=== PATIENT | male | born 1970 | race Caucasian/White ===

== ENCOUNTER 2016-09-26 04:30 | Emergency (ER) | payer OTHER ==
[~2016-09-26] VITALS: Ht 172.7 cm; Wt 77.1 kg
[~2016-09-26 04:30] MED LIST: BENZONATATE100 MG; CEPHALEXIN500 MG; DHEA PO; DILAUDID2 MG PO; FLOMAX(MONOGRA0.4 MG PO; MOTRIN 800MG T800 MG PO; MULTIVITAMIN1 TAB PO; PERCOCET 325 MG1 TA2 PO; VITAB121000 PO; VITAMIN D32000 I1 PO; ZOFRAN4 M1 SL
--- NOTE | 2016-09-26 05:05 | ED HAND/WRIST INJURY COMPLAINT ---
History of Present Illness General Chief Complaint: Fall Stated Complaint: "? LT THUNB INJURY,RT KNEE PAIN S/P FALL" -LOC Source: patient, old records Exam Limitations: no limitations Vital Signs & Intake/Output Vital Signs & Intake/Output Vital Signs Date Time Temp Pulse Resp B/P Pulse O2 O2 Flow FiO2 Ox Delivery Rate 09/26 0459 96.3 83 20 143/76 94 Room Air Allergies Coded Allergies: No Known Allergies (10/28/15) Reconcile Medications Ascorbic Acid/Calcium/Dehydr (Dhea) 1 TAB TAB 1 TAB PO DAILY SUPPLEMENT ( Reported) Benzonatate (Unknown Strength) SGL (Unknown Dose) UNKNOWN (Reported) Cephalexin (Unknown Strength) CAP (Unknown Dose) UNKNOWN (Reported) CHOLECALCIFEROL (VITAMIN D3) (Vitamin D-3) 2,000 IU SGL 1 SGL PO DAILY SUPPLEMENT (Reported) Cyanocobalamin (Vitamin B-12) (Unknown Strength) TAB (Unknown Dose) PO DAILY SUPPLEMENT (Reported) HYDROMORPHONE HCL (Dilaudid) 2 MG TAB 1 TAB PO Q6 PRN Pain 7-10 please take 1 tab every 6 hours for pain Please call PCP if pain persists after second pill Multivitamin (Multiple Vitamins) 1 TAB TAB 1 TAB PO DAILY SUPPLEMENT ( Reported) Ondansetron (Zofran Odt) 4 MG ODT 1 ODT SL Q6P PRN NAUSEA Tamsulosin Hydrochloride (Flomax) 0.4 MG CAP 1 TAB PO DAILY kidney stone Yibuprofen (Motrin 800MG Tab) 800 MG TAB 1 TAB PO Q6P PRN pain Triage Note: PT TO TRIAGE S/P FALLING THIS MORNING. C/O R KNEE PAIN AND L THUMB PAIN/LAC. DENIES HEAD STRIKE, DENIES BLOOD THINNERS. Triage Nurses Notes Reviewed? yes HPI: Patient was asleep in bed when he hurt his mother fall. Patient jumped up from bed and ran over to help her up. When he got there he noticed that there was blood on the floor and then his left thumb began to throb and his right knee began to hurt. Patient is unsure what he hit either of them on. Patient does not think he fell but he is unsure. The pain in his left thumb is constant and is throbbing in nature. There is no radiation. There are no aggravating or mitigating factors. The pain is 8 out of 10. The pain in his right knee is aching in nature and there is no radiation. There are no aggravating or mitigating factors. The pain is constant. He rates the pain as 4 out of 10. Past History Travel History Traveled to [place] past 21 day No Medical History Any Pertinent Medical History? 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 No Review of Systems Review of Systems Constitutional: Reports: no symptoms. Respiratory: Reports: no symptoms. Cardiovascular: Reports: no symptoms. GI: Reports: no symptoms. Musculoskeletal: Reports: see HPI. Neurological/Psychological: Reports: no symptoms. Immunologic/Allergic: Reports: no symptoms. Physical Exam Physical Exam General Appearance: well developed/nourished, alert, awake, anxious, moderate distress Head: atraumatic, normal appearance Eyes: Bilateral: PERRL, EOMI. Ears, Nose, Throat: normal pharynx, normal ENT inspection, hearing grossly normal Neck: normal inspection, supple, full range of motion Cardiovascular/Respiratory: normal breath sounds, normal peripheral pulses, regular rate/rhythm, no respiratory distress Hand Left: ECCHYMOSIS TO THE TIP OF LEFT THUMB. sENSATION IS INTACT Hand Right: normal inspection, normal range of motion Neurologic/Tendon: normal sensation, normal motor functions, normal tendon functions Progress Differential Diagnosis: contusion, fracture, sprain Plan of Care: Orders Procedure Date/time Status XRY-FINGERS, LEFT 09/26 0504 Active Diagnostic Imaging: Viewed by Me: Radiology Read. Discussed w/RAD: Radiology Read. Radiology Impression: no acute abnormality, no fracture, no dislocation, no foreign body seen Departure Departure Disposition: HOME OR SELF CARE Condition: Stable Clinical Impression Primary Impression: Contusion of left thumb Referrals: JACOB QUESADA MD (PCP/Family) Additional Instructions: R SPLINT FOR COMFORT RETURN FOR SORENING SYMPTOMS OR FOR ANY CONCERNS Departure Forms: Customer Survey General Discharge Information Prescriptions: Current Visit Scripts Oxycodone HCl/Acetaminophen (Percocet 5-325 MG Tablet) 1-2 TAB PO Q6P PRN PAIN #20 TAB Procedures Splinting Location: LEFT THUMB Manual Alignment Performed: No Pre-Made Type: metal Splint: THUMB/FINGER Splint Applied By: splint applied by me Pre-Proc Neuro Vasc Exam: normal Post-Proc Neuro Vasc Exam: normal
[2016-09-26] MEDS ORDERED: PERCOCET 5-3251 EACH PO (06:18)
--- NOTE | 2016-09-26 06:19 | RADIOLOGY REPORT ---
EXAMINATION: XR KNEE, RIGHT CLINICAL INFORMATION: Pain COMPARISON: None TECHNIQUE: Four views of the right knee. FINDINGS: Alignment is anatomic. Joint spaces are maintained. No acute fracture is seen. No significant effusion. IMPRESSION: No acute findings.
--- NOTE | 2016-09-26 06:21 | RADIOLOGY REPORT ---
EXAMINATION: XR FINGER, LEFT CLINICAL INFORMATION: Pain and bleeding COMPARISON: None TECHNIQUE: Three views of the left thumb. FINDINGS: Osseous alignment is anatomic. No acute fracture is seen. No significant soft tissue abnormality is identified. IMPRESSION: No acute findings identified.
[2016-09-26 06:40] VITALS: BP 132/72
== END 2016-09-26 06:46 ==
LOC: ERH 04:30
DX: S60.012A Contusion of left thumb without damage to nail, initial encounter (principal); M25.561 Pain in right knee; X58.XXXA Exposure to other specified factors, initial encounter
CPT/HCPCS: 73140-LT; 73562-RT; 90714

== ENCOUNTER 2016-09-26 09:43 | Emergency (ER) | payer OTHER ==
[~2016-09-26] VITALS: Ht 175.3 cm; Wt 87.1 kg
[~2016-09-26 09:43] MED LIST changes: +PERCOCET 5-3251 EACH PO
--- NOTE | 2016-09-26 09:45 | ED SKIN/ALLERGY COMPLAINT ---
History of Present Illness General Chief Complaint: Suture Removal/Wound Recheck Stated Complaint: WOUND CHECK Source: patient Exam Limitations: no limitations Vital Signs & Intake/Output Vital Signs & Intake/Output Vital Signs Date Time Temp Pulse Resp B/P Pulse O2 O2 Flow FiO2 Ox Delivery Rate 09/26 1152 96.9 85 18 127/77 98 Room Air 09/26 0948 98.0 76 20 127/81 98 Room Air Room Air Allergies Coded Allergies: No Known Allergies (09/26/16) Reconcile Medications Ascorbic Acid/Calcium/Dehydr (Dhea) 1 TAB TAB 1 TAB PO DAILY SUPPLEMENT ( Reported) Benzonatate (Unknown Strength) SGL (Unknown Dose) UNKNOWN (Reported) Cephalexin (Unknown Strength) CAP (Unknown Dose) UNKNOWN (Reported) CHOLECALCIFEROL (VITAMIN D3) (Vitamin D-3) 2,000 IU SGL 1 SGL PO DAILY SUPPLEMENT (Reported) Cyanocobalamin (Vitamin B-12) (Unknown Strength) TAB (Unknown Dose) PO DAILY SUPPLEMENT (Reported) HYDROMORPHONE HCL (Dilaudid) 2 MG TAB 1 TAB PO Q6 PRN Pain 7-10 please take 1 tab every 6 hours for pain Please call PCP if pain persists after second pill Multivitamin (Multiple Vitamins) 1 TAB TAB 1 TAB PO DAILY SUPPLEMENT ( Reported) Ondansetron (Zofran Odt) 4 MG ODT 1 ODT SL Q6P PRN NAUSEA Oxycodone HCl/Acetaminophen (Percocet 5-325 MG Tablet) 5 MG-325 MG TABLET 1-2 TAB PO Q6P PRN PAIN Tamsulosin Hydrochloride (Flomax) 0.4 MG CAP 1 TAB PO DAILY kidney stone Yibuprofen (Motrin 800MG Tab) 800 MG TAB 1 TAB PO Q6P PRN pain Triage Nurses Notes Reviewed? yes Onset: Abrupt Duration: getting worse Severity: severe Severity Numbers: 10 Location: extremities HPI: Patient is a 45-year-old male who presents emergency room with requests of wound evaluation in which he was seen earlier in the morning today [place] emergency room where he was evaluated for a left thumb contusion and a right knee contusion in which x-rays were unremarkable for osseous injury. Splinting was applied however patient returns to emergency room stay in that the wound site to the left thumb continuously bleeds. Patient has had no relief of pain with Percocet. (RADHA COLES,DMITRY) Past History Travel History Traveled to [place] past 21 day No Medical History Any Pertinent Medical History? 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 No (DMITRY RODRIGUEZ) Review of Systems Review of Systems Constitutional: Reports: no symptoms. EENTM: Reports: no symptoms. Respiratory: Reports: no symptoms. Cardiovascular: Reports: no symptoms. GI: Reports: no symptoms. Genitourinary: Reports: no symptoms. Musculoskeletal: Reports: see HPI, joint pain. Skin: Reports: see HPI. Neurological/Psychological: Reports: no symptoms. Hematologic/Endocrine: Reports: see HPI, bleeding. Immunologic/Allergic: Reports: no symptoms. All Other Systems: Reviewed and Negative (DMITRY RODRIGUEZ) Physical Exam Physical Exam General Appearance: no apparent distress, alert, comfortable Head: atraumatic Eyes: Bilateral: normal appearance. Ears, Nose, Throat: hearing grossly normal Neck: normal inspection Respiratory: normal breath sounds Peripheral Pulses: 2+ radial (R), 2+ radial (L) Back: normal inspection Neurologic/Psych: awake, alert Skin: normal color Diagram Hands, Dorsum: 1) 50% noted subungual hematoma with peripheral mild active bleeding Nail is intact, skin is intact severe point tenderness noted dermatomes intact (DMITRY RODRIGUEZ) Progress Differential Diagnosis: FRACTURE, SUBUNGUAL HEMATOMA, CONTUSION, Plan of Care: Previous x-rays noted no fracture The wound was soaked in sterile water and Betadine then I used electrocautery trephination was successful to the subungual hematoma site and which mild active discharge was noted patient tolerated well the thumb was cleaned with sterile water and I placed gauze to the wound. Patient tolerated well. Patient also had significant improvement of his presenting complaints. uPON DISCHARGE PATIENT LOOKS WELL NO APPARENT DISTRESS AND WILL COMPLY WITH DISCHARGE INSTRUCTIONS AND HAD NO QUESTIONS. i DISCUSSED WITH PATIENT THAT IF signs of infection occur he will return to emergency room (DMITRY RODRIGUEZ) Departure Departure Disposition: HOME OR SELF CARE Condition: Stable Clinical Impression Primary Impression: Hematoma, subungual, finger, left Referrals: JACOB QUESADA MD (PCP/Family) Additional Instructions: As discussed change the dressings once a day with the extra bandages provided to the emergency room and if you note signs of infection redness, pain, swelling, discharge return to emergency room. Continue with previously prescribed pain medications if needed as directed. Follow up with primary care doctor in 1 week for recheck of symptoms. Keep area dry and clean as you can Departure Forms: Customer Survey General Discharge Information (DMITRY RODRIGUEZ) PA/GLASS VIAL FILLER Co-Sign Statement Statement: ED Attending supervision documentation- [x] I saw and evaluated the patient. I have also reviewed all the pertinent lab results and diagnostic results. I agree with the findings and the plan of care as documented in the PA's/GLASS VIAL FILLER's documentation. [] I have reviewed the ED Record and agree with the PA's/GLASS VIAL FILLER's documentation. [] Additions or exceptions (if any) to the PAs/GLASS VIAL FILLER's note and plan are summarized below: [] (CASSI GUERRA DO)
[2016-09-26 11:52] VITALS: BP 127/77
== END 2016-09-26 11:53 ==
LOC: ERH 09:43
DX: S60.112D Contusion of left thumb with damage to nail, subsequent encounter (principal)
CPT/HCPCS: 96372; J1885